=== PATIENT | female | born 1965 | race Caucasian/White ===

== ENCOUNTER 2021-08-15 11:24 | Observation (INO) ==
[2021-08-15] MEDS ORDERED: ceFAZolin 1 GM ADVAN 1 GM in NS 0.9% 50 ML 50 ML IVPB ONE (11:58)
[2021-08-15] MEDS ORDERED: fentaNYL 100 mcg/2 ml 50 MCG/ML VIAL IV SLOW PU ONE ×3 (11:58→13:37)
[2021-08-15] MEDS ORDERED: Lactated Ringers 1000 ml BAG 1,000 ML IV ONE (12:01)
[2021-08-15] MEDS ORDERED: Midazolam 5 mg/ml concentrated 5 mg/ml 1 ml VIAL ONE (12:07)
[2021-08-15] MEDS ORDERED: fentaNYL 100 mcg/2 ml 50 MCG/ML VIAL ONE ×4 (12:07→16:04)
[2021-08-15 12:15] LABS: ABS Basophils 0.1 10^3/ul (0-0.2); ABS Eosinophils 0.3 10^3/ul (0-0.6); ABS Lymphocytes 2.9 10^3/ul (1.0-4.8); ABS Monocytes 1.1 10^3/ul (0-0.8); ABS Neutrophils 11.4 10^3/ul (1.5-7.7); Eosinophil % 1.7 %; Hematocrit 42 % (35-47); Hemoglobin 14.3 g/dL (12.0-16.0); Lymphocyte % 18.5 %; Mean Corpuscular HGB Conc 34 g/dL (31-36); Mean Corpuscular Hemoglobin 33 pg (27-31); Mean Corpuscular Volume 98 fL (80-97); Mean Platelet Volume 10.3 fL (7.4-10.4); Platelet Count 204 10^3/uL (150-450); Red Blood Count 4.27 10^6 /uL (3.70-4.87); Red Cell Distribution Width 13 % (10-15); White Blood Count 15.7 10^3/uL (3.5-10.8)
[2021-08-15] MEDS: Midazolam 2 mg/2 ml VIAL 1 mg/ml 2 ml VIAL (2 mg) IV SLOW PU ONE ×2 (12:16→15:06)
[2021-08-15] MEDS ORDERED: Rocuronium 50 mg VIAL 10 mg/ml 5 ml VIAL (50 mg) ONE ×3 (12:20→14:25)
[2021-08-15] MEDS ORDERED: Succinylcholine 200 mg VIAL 20 mg/ml 10 ml VIAL (200 mg) ONE ×2 (12:20→12:42)
[2021-08-15] MEDS ORDERED: Midazolam 5 mg/5 ml VIAL 1 mg/ml 5 ml VIAL (5 mg) IV SLOW PU ONE (12:38)
[2021-08-15] MEDS ORDERED: Dexamethasone IV 4 MG/ML VIAL 1 ml VIAL ONE (12:42)
[2021-08-15] MEDS ORDERED: Ondansetron 4 mg VIAL 2 MG/ML 2 ml VIAL ONE (12:42)
[2021-08-15] MEDS ORDERED: Propofol 10 MG/ML 20 ML BTL ONE (12:42)
[2021-08-15] MEDS ORDERED: Lidocaine 2% PF 5 ML VIAL ONE (12:42)
[2021-08-15 12:44] LABS: Albumin 4.7 g/dL (3.2-5.2); Albumin/Globulin Ratio 1.7 (1-3); Calcium 9.8 mg/dL (8.6-10.3); Globulin 2.7 g/dL (2-4); Total Bilirubin 0.5 mg/dL (0.2-1.0); Total Protein 7.4 g/dL (6.4-8.9); eGFR CKD-EPI 81.5 (>60)
[2021-08-15 13:02] LABS: INR 0.97 (0.86-1.15)
[2021-08-15] MEDS ORDERED: Bupivacaine 0.5% SDV PF 30ML VIAL ONE (13:23)
[2021-08-15] MEDS ORDERED: Ondansetron 4 mg VIAL 2 MG/ML 2 ml VIAL IV PRN ×2 (14:41→17:48)
[2021-08-15] MEDS ORDERED: Acetaminophen IV 1 GM/100ML 100 ML IV PRN (14:41)
[2021-08-15] MEDS ORDERED: DiMENhydriNATE IV 50 mg/ml 1 ml VIAL IV PUSH PRN (14:41)
[2021-08-15] MEDS ORDERED: Naloxone 0.4 mg VIAL 0.4 mg/ml 1 ml VIAL IV PRN (14:41)
[2021-08-15] MEDS ORDERED: HYDROmorphone 1 MG/1 ML SYRINGE IV PRN (14:41)
[2021-08-15] MEDS ORDERED: fentaNYL 100 mcg/2 ml 50 MCG/ML VIAL IV PRN (14:41)
[2021-08-15] MEDS ORDERED: Piperacillin/Tazobac 3.375 GM BAG ONE (14:51)
[2021-08-15] MEDS ORDERED: oxyCODONE/Acetamin 5/325 mg TAB PO PRN (17:48)
[2021-08-15] MEDS ORDERED: Piperacillin/Tazobac ADVAN 3.375 GM in NS 0.9% 100 ml BAG 100 ML IV ONE (17:54)
[2021-08-15] MEDS ORDERED: Lactated Ringers 1000 ml BAG 1,000 ML IV SCH (18:00)
[2021-08-15] MEDS ORDERED: Zosyn per Pharmacy NOTE FOLLOW UP SCH (18:00)
[2021-08-15] MEDS: HYDROmorphone 0.5 MG/0.5 ML SYRINGE IV SLOW PU PRN ×2 (18:43→23:09)
[2021-08-15] MEDS: ZOSYN 3.375 GM Q8H per EXTENDED INFUSION IV SCH (20:06)
[2021-08-16] MEDS: HYDROmorphone 0.5 MG/0.5 ML SYRINGE IV SLOW PU PRN (03:53)
[2021-08-16] MEDS: ZOSYN 3.375 GM Q8H per EXTENDED INFUSION IV SCH (03:54)
[2021-08-16] MEDS ORDERED: NS 0.9% 1000 ml BAG 1,000 ML IV SCH (09:45)
[2021-08-16 12:17] VITALS: BP 100/65
== END 2021-08-16 14:33 | disposition home or self-care (01) ==
LOC: AA 11:24 → ED 11:24 → AA 13:34 → SUATTDRO 15:37 → SSU 18:35
PROVIDERS: ADMIT Obstetrics & Gynecology; ATTEND Obstetrics & Gynecology